=== PATIENT | male | born 1970 | race Caucasian/White ===

== ENCOUNTER 2022-08-17 03:02 | Day surgery (SDC) | payer OTHER, SELFPAY ==
[2022-08-12 15:20] VITALS: BMI 30.4
--- NOTE | 2022-08-12 15:23 | PC.NURSE ---
Report to the Outpatient Waiting Room, entrance under the green pavilion located off [facility], at time 0600 on date 08/17/22. Planned Procedure Time: 0730. Time changes happen often and if your time is changed the preop area will call you the afternoon before. - You and your visitor will be asked to self-screen and do not enter if you have any COVID symptoms. - We encourage only one visitor and NO visitors under age 16 are allowed at this time. Your visitor will receive communication by the phone number that is given day of service. - The patient visitor is requested to social distance or may leave the building when not with patient due to restrictions. - A mask is OPTIONAL within the hospital. Patients may have clear liquids (water, carbonated beverages, clear teas, apple juice) until 3 hours prior to surgery with a maximum of 20 ounces. - No food from midnight until time of surgery Take the following medications with a SIP of water the morning of surgery: TYLENOL IF NEEDED Medications to discontinue per physician: N/A Date to take last dose: N/A Please no make-up, nail french, hairspray, perfume, deodorant, or body powder the day of surgery. No jewelry (including any body piercings) or valuables the day of surgery, leave them at home. Please take a shower or bath the night before, or the morning of, surgery with an antibacterial soap. Wear comfortable, loose fitting clothing. - Jewelry must be removed prior to entering the operating room. Rings and piercings that are not removed may be cut off. - The hospital will not accept responsibility for valuables. - Please leave all valuables, including medications, at home the day of surgery. If you are going home after surgery, a licensed solo truck driver must drive you home. - NO public transportation without another adult. - We recommend that an adult stay with you for 24 hours following discharge. - We also recommend that you do not drive, make important decision, drink alcoholic beverages, or take any drugs that were not prescribed by your health care provider for at least 24 hours after your discharge time. Follow any additional instructions given to you from your surgeon. If you or anyone in your household have experienced Covid symptoms in the past week, please notify your surgeon or the nurse liaison at the phone number below for possible testing. Telephone instructions given to PT - AMANDA TEBBE and asked if any additional questions and then verbalized understanding. Patient advised to call surgeon office or pre surgery nurse liaison [phone] if any additional questions.
[2022-08-17] VITALS (8 sets, daily range): BP systolic 111–126; BP diastolic 65–84; PULSE 58–75; RESP 12–20; TEMP 36–36.7; O2SAT 97–100
[2022-08-17] MEDS: ACETAMINOPHEN 500 MG TABLET 1000 MG PO (06:32)
[2022-08-17] MEDS: KETOROLAC 15 MG/ML VIAL (*BKC) IV PUSH (06:39)
--- NOTE | 2022-08-17 06:45 | SUR.PREOP ---
PATIENT STATES HE HAS USED CRUTCHES IN THE PAST AND IS COMFORTABLE USING THEM POST OPERATIVELY. STATES HE DOES NOT NEED FURTHER INSTRUCTIONS. INSTRUCTED PATIENT TO REVIEW DISCHARGE INSTRUCTIONS WITH CRUTCH TRAINING PACKET IF NEEDED.
--- NOTE | 2022-08-17 06:59 | P.PNAN_ITS ---
Anes - Initial Pre Proc Eval Procedure: Operation Date: 08/17/22 07:30 Proposed Procedures p Right Knee Arthroscopy with Meniscectomy - Nick Godinez MD Date/Time: 08/17/22 06:59 Surgeon: Nick Godinez MD Pre Op Diagnosis: Rt Knee Medial Meniscus Tear Patient Data Age: 52 Gender: M Height: 1.73 m Weight: 90 kg Last Vital Signs Temp 36.0 C L 08/17/22 06:40 Pulse 75 08/17/22 06:40 Resp 16 08/17/22 06:40 BP 114/74 08/17/22 06:40 Pulse Ox 99 08/17/22 06:40 O2 Del Method Room Air 08/17/22 06:40 Allergies Allergy/AdvReac Type Severity Reaction Status Date / Time No Known Allergies Allergy Verified 08/17/22 06:20 Home Medications Medication Instructions Recorded Confirmed Type acetaminophen 500 mg capsule 500 mg PO Q6H PRN Pain 01/21/22 08/17/22 History ibuprofen 200 mg tablet 200 mg PO Q6H PRN Pain 03/25/22 08/17/22 History Patient hx anesthesia problems: none Family hx anesthesia problems: none Results Review: All pre-operative results and documents have been reviewed as part of the pre- operative evaluation. [facility] Past Medical History Medical History Complex tear of medial meniscus of right knee Hyperlipidemia Surgical History Surgical History History of tonsillectomy Family History Family History Other Cerebrovascular accident Heart disease Social History Social History Smoking status: Never smoker Alcohol intake: current Drinks per week: 6 Substance use: never Substance use type: does not use Living arrangements: with family Additional occupation/education comments: concrete pourer Gender identity (if verbalized by the patient): Male Spiritual care concerns: No Anes - Eval Final PreProcedure Day of Procedure 08/17/22 06:59 Patient weight: overweight Heart: regular rate and rhythm Lungs: clear to auscultation Airway: Mallampati scale class II Neurological: alert and oriented Last oral intake: >/= 8 hours ASA classification: II Emergent: no Anesthetic plan: proceed Anesthesia type and monitoring: general LMA and standard monitoring Results Review: All pre-operative results and documents have been reviewed as part of the pre- operative evaluation. Informed Consent: The patient's anesthetic plan and its attendant risks and benefits were discussed with the patient/family/POA. Questions were solicited and answers provided to the satisfaction of the patient/family/POA.
[2022-08-17] MEDS: LACTATED RINGERS 1,000 ML 30 ML IV CONT (07:00)
--- NOTE | 2022-08-17 07:07 | WPDHPUPDATE1 ---
History and Physical Update Update Date/Time: 08/17/22 07:07 History and Physical has been reviewed, including an updated exam of the patient. There are NO changes in the patient's condition. Risks, benefits, and alternatives have been discussed and questions answered. Patient agrees to proceed with procedure.
--- NOTE | 2022-08-17 07:15 | SUR.PREOP ---
DR ISBELL AWARE THAT PATIENT HAS SMALL ABRASION TO RIGHT WINSTON, NO SIGNS OF INFECTION
[2022-08-17] MEDS: ceFAZolin 2 GM/D5W 50 ML 2 GM/50 ML BAG IVPB (07:20)
[2022-08-17] MEDS: LIDOCAINE HCL 1% PF 30 ML VIAL INFILTRATE (07:49)
--- NOTE | 2022-08-17 08:21 | W.PM.PROC2 ---
Procedure Note - Detailed Date of Procedure 08/17/22 Pre-op Diagnosis Rt Knee Medial Meniscus Tear Post-op Diagnosis Same Procedure Performed Right knee arthroscopy, medial meniscectomy Surgeon Nick Godinez MD Anesthesia General Description of Procedure The patient was identified and proper site identified and he was taken to the operating room, transferred to the OR table placing him supine taking care to pad the torso and extremities. After general anesthetic induction and intubation, a nonsterile tourniquet was placed high on the right thigh but was not inflated. The right lower extremity was positioned, prepped and draped in usual sterile fashion. 10 cc of 1% lidocaine was injected into the subcutaneous tissue in the area of the portals at start of the procedure, and an additional 10 at the end. The portals were established and the arthroscopy was carried out. Articular cartilage in the anterior and lateral compartments were in excellent condition. Lateral meniscus was in good shape and stable. Anterior posterior cruciate ligaments were in continuity. Pouch and gutters were clear. There was a synovial fold along the medial margin of the medial femoral condyle. This was debrided with the shaver and then hemostasis carried out with the ArthroCare Wand. There was complex tear of the medial meniscus from the posterior horn into the midbody. This was contoured back to stable rim with basket forceps and a shaver. The knee was flushed with a copious amount of arthroscopic fluid and equipment was removed. Portals were closed with three O nylon suture and a sterile dressing was applied. He tolerated the procedure well, was awakened, extubated and taken to recovery area in stable condition. There were no known intraoperative complications. Estimated blood loss was negligible; he received perioperative antibiotics. Estimated Blood Loss 10 Tourniquet Time 0 Drains No Packing No Pathology None sent Complications No immediate complications Condition Stable Disposition PACU [facility] Billing Surgery - Charge Forward: Surgery Billing ([id number])
[2022-08-17] MEDS: oxyCODONE HCL (*CRX) 5 MG TAB IR PO (09:21)
== END 2022-08-17 10:05 | disposition home or self-care (01) ==
PROVIDERS: PCP Nurse Practitioner; Visit Provider Orthopaedic Surgery
PROC: (CPT 29870; principal; 2022-08-17 07:30)
DX: S83.231A Complex tear of medial meniscus, current injury, right knee, initial encounter (principal); X50.0XXA Overexertion from strenuous movement or load, initial encounter
CPT/HCPCS: 29881; A9270; J0690; J1100; J1885; J2250; J2405; J2704; J3010; J7120